=== PATIENT | female | born 1955 | race Caucasian/White ===

== ENCOUNTER 2016-09-10 11:57 | Emergency (ER) | payer BC ==
--- NOTE | ~2016-09-10 | CR253 ---
[facility] A Service of [facility] & [facility] RADIOLOGY TEXT RESULTS PATIENT: QAMAR SILVERMAN LOCATION: CFTX : 55 UNIT #: [id number] AGE: [address]: Nereida Mcdonough APRN SEX: F ORDER DR: [id number] [facility] [address] [place], [place] [address] [id number] E MR#: [id number] Acc #: [id number] NAME: QAMAR SILVERMAN. : 1955 SEX: F STUDY DATE/TIME: 09/10/2016 14:13 UNIT: [facility] ROOM: STUDY DESCRIPTION: CR Tibia and Fibula 2 Views Rt Attending Physician: Nereida Mcdonough A.P.R.N. Ordering Physician: Ed Efrem Whelan M.D. Primary Care Physician: Kenya Pereira M.D. MEDICAL IMAGING REPORT This report is preliminary unless electronic signature is present EXAM Right leg, 09/10/2016. HISTORY Right leg pain status post fall today. COMPARISON None. FINDINGS 2 views of the right leg demonstrate no acute fracture or dislocation. Soft tissues are unremarkable. IMPRESSION Unremarkable right leg. Dictated by... Dom Oneal M.D. THIS IS AN ELECTRONICALLY VERIFIED REPORT Dom Oneal M.D. at 09/11/2016 6:26 AM ERIKA/danay TD: 09/10/2016 14:49 JOB #: [id number] MEDICAL IMAGING REPORT Page 1 of 1 COPY
--- NOTE | ~2016-09-10 | CR94 ---
[facility] A Service of [facility] & [facility] RADIOLOGY TEXT RESULTS PATIENT: QAMAR SILVERMAN LOCATION: CFTX : 55 UNIT #: [id number] AGE: [address]: Nereida Mcdonough APRN SEX: F ORDER DR: [id number] [facility] [address] [place], [place] [address] [id number] E MR#: [id number] Acc #: [id number] NAME: QAMAR SILVERMAN. : 1955 SEX: F STUDY DATE/TIME: 09/10/2016 14:19 UNIT: [facility] ROOM: STUDY DESCRIPTION: CR Elbow Min 3 Views Rt Attending Physician: Nereida Mcdonough A.P.R.N. Ordering Physician: Ed Efrem Whelan M.D. Primary Care Physician: Kenya Pereira M.D. MEDICAL IMAGING REPORT This report is preliminary unless electronic signature is present EXAM Right elbow, 09/10/2016. HISTORY 60-year-old female with right elbow pain status post fall today. COMPARISON None. FINDINGS 3 views of the right elbow demonstrate no acute fracture or dislocation. No joint effusion. Soft tissues are unremarkable. IMPRESSION Unremarkable right elbow. Dictated by... Dom Oneal M.D. THIS IS AN ELECTRONICALLY VERIFIED REPORT Dom Oneal M.D. at 09/11/2016 6:26 AM ERIKA/danay TD: 09/10/2016 14:53 JOB #: [id number] MEDICAL IMAGING REPORT Page 1 of 1 COPY
--- NOTE | ~2016-09-10 | CR126 ---
[facility] A Service of [facility] & [facility] RADIOLOGY TEXT RESULTS PATIENT: QAMAR SILVERMAN LOCATION: CFTX : 55 UNIT #: [id number] AGE: [address]: Nereida Mcdonough APRN SEX: F ORDER DR: [id number] [facility] [address] [place], [place] [address] [id number] E MR#: [id number] Acc #: [id number] NAME: QAMAR SILVERMAN. : 1955 SEX: F STUDY DATE/TIME: 09/10/2016 14:16 UNIT: [facility] ROOM: STUDY DESCRIPTION: CR Foot Complete Min 3 View Lt Attending Physician: Nereida Mcdonough A.P.R.N. Ordering Physician: Ed Efrem Whelan M.D. Primary Care Physician: Kenya Pereira M.D. MEDICAL IMAGING REPORT This report is preliminary unless electronic signature is present EXAM Left foot, 09/10/2016. HISTORY Left foot pain status post fall today. COMPARISON None FINDINGS 3 views of the left foot demonstrate no acute fracture or dislocation. Mild lateral ankle soft tissue swelling. IMPRESSION Mild lateral ankle soft tissue swelling. No acute fracture or dislocation. Dictated by... Dom Oneal M.D. THIS IS AN ELECTRONICALLY VERIFIED REPORT Dom Oneal M.D. at 09/11/2016 6:26 AM ERIKA/danay TD: 09/10/2016 14:51 JOB #: [id number] MEDICAL IMAGING REPORT Page 1 of 1 COPY
--- NOTE | ~2016-09-10 | CR21 ---
[facility] A Service of [facility] & [facility] RADIOLOGY TEXT RESULTS PATIENT: QAMAR SILVERMAN LOCATION: CFTX : 55 UNIT #: [id number] AGE: [address]: Nereida Mcdonough APRN SEX: F ORDER DR: [id number] [facility] [address]. [place], [place] [address] [id number] E MR#: [id number] Acc #: [id number] NAME: QAMAR SILVERMAN. : 1955 SEX: F STUDY DATE/TIME: 09/10/2016 14:12 UNIT: [facility] ROOM: STUDY DESCRIPTION: CR Ankle Min 3 Views Rt Attending Physician: Nereida Mcdonough A.P.R.N. Ordering Physician: Ed Efrem Whelan M.D. Primary Care Physician: Kenya Pereira M.D. MEDICAL IMAGING REPORT This report is preliminary unless electronic signature is present EXAM Right ankle, 09/10/2016. HISTORY 60-year-old female with right ankle pain status post fall today. COMPARISON None. FINDINGS 3 views of the right ankle demonstrate no acute fracture or dislocation. Ankle mortise symmetric. Talar dome intact. No joint effusion. Mild lateral ankle soft tissue swelling. IMPRESSION Mild lateral ankle soft tissue swelling. No evidence of acute fracture or dislocation. Dictated by... Dom Oneal M.D. THIS IS AN ELECTRONICALLY VERIFIED REPORT Dom Oneal M.D. at 09/11/2016 6:25 AM ERIKA/danay TD: 09/10/2016 14:48 JOB #: [id number] MEDICAL IMAGING REPORT Page 1 of 1 COPY
--- NOTE | ~2016-09-10 | CR170 ---
[facility] A Service of [facility] & [facility] RADIOLOGY TEXT RESULTS PATIENT: QAMAR SILVERMAN LOCATION: CFTX : 55 UNIT #: [id number] AGE: [address]: Nereida Mcdonough APRN SEX: F ORDER DR: [id number] [facility] [address] [place], [place] [address] [id number] E MR#: [id number] Acc #: [id number] NAME: QAMAR SILVERMAN. : 1955 SEX: F STUDY DATE/TIME: 09/10/2016 14:17 UNIT: [facility] ROOM: STUDY DESCRIPTION: CR Knee 2 Views Rt Attending Physician: Nereida Mcdonough A.P.R.N. Ordering Physician: Ed Efrem Whelan M.D. Primary Care Physician: Kenya Pereira M.D. MEDICAL IMAGING REPORT This report is preliminary unless electronic signature is present EXAM Right knee, 09/10/2016. HISTORY Right knee pain status post fall today. COMPARISON None. FINDINGS 2 views of the right knee demonstrate no acute fracture or dislocation. No joint effusion. Joint spaces are adequately maintained. Soft tissues are unremarkable. IMPRESSION Unremarkable right knee. Dictated by... Dom Oneal M.D. THIS IS AN ELECTRONICALLY VERIFIED REPORT Dom Oneal M.D. at 09/11/2016 6:26 AM ERIKA/danay TD: 09/10/2016 14:53 JOB #: [id number] MEDICAL IMAGING REPORT Page 1 of 1 COPY
--- NOTE | ~2016-09-10 | CR20 ---
[facility] A Service of [facility] & [facility] RADIOLOGY TEXT RESULTS PATIENT: QAMAR SILVERMAN LOCATION: CFTX : 55 UNIT #: [id number] AGE: [address]: Nereida Mcdonough APRN SEX: F ORDER DR: [id number] [facility] [address] [place], [place] [address] [id number] E MR#: [id number] Acc #: [id number] NAME: QAMAR SILVERMAN. : 1955 SEX: F STUDY DATE/TIME: 09/10/2016 14:14 UNIT: [facility] ROOM: STUDY DESCRIPTION: CR Ankle Min 3 Views Lt Attending Physician: Nereida Mcdonough A.P.R.N. Ordering Physician: Ed Efrem Whelan M.D. Primary Care Physician: Kenya Pereira M.D. MEDICAL IMAGING REPORT This report is preliminary unless electronic signature is present EXAM Left ankle, 09/10/2016. HISTORY Left ankle pain status post fall today. COMPARISON None. FINDINGS 3 views of the left ankle demonstrate no acute fracture or dislocation. Ankle mortise symmetric. Talar dome intact. No ankle effusion. Mild lateral ankle soft tissue swelling. IMPRESSION Mild lateral ankle soft tissue swelling. No evidence of acute fracture or dislocation. Dictated by... Dom Oneal M.D. THIS IS AN ELECTRONICALLY VERIFIED REPORT Dom Oneal M.D. at 09/11/2016 6:26 AM ERIKA/danay TD: 09/10/2016 14:50 JOB #: [id number] MEDICAL IMAGING REPORT Page 1 of 1 COPY
[~2016-09-10 11:57] MED LIST: ALBUTEROL 0.5ML INH; ASPIRIN PO; ATORVASTATIN CA10 MG PO; CADUET 10 MG/201 TAB PO; KCL PO; KLONOPIN PO; KLONOPIN0.5 MG PO; LEXAPRO PO; LISINOPRIL-HCTZ1 T14 PO; LORTAB 5/500 TA1 TA1 PO; MIDRIN CAPSULE1 CAP PO; NITROGYLCERIN; PANTOPRAZOLE SO40 MG PO; PATIENT'S PHARMACY; PROAIR HFA8.5 GM INH; PROTONIX PO; SPIRIVA18 MCG INH; SYMBICORT 16010.2 GM INH; ZESTORETIC 20/11 TAB PO
== END 2016-09-10 15:25 | disposition home or self-care (01) ==
LOC: CED 11:57 → CFTX 11:57
DX: S93.402A Sprain of unspecified ligament of left ankle, initial encounter (principal); S80.01XA Contusion of right knee, initial encounter; S50.01XA Contusion of right elbow, initial encounter; S90.812A Abrasion, left foot, initial encounter; I10 Essential (primary) hypertension; E11.9 Type 2 diabetes mellitus without complications; Z88.8 Allergy status to other drugs, medicaments and biological substances; Z79.899 Other long term (current) drug therapy; W01.0XXA Fall on same level from slipping, tripping and stumbling without subsequent striking against object, initial encounter; Y92.410 Unspecified street and highway as the place of occurrence of the external cause
CPT/HCPCS: 73080; 73560; 73590; 73610; 73630; 90715; 99284